=== PATIENT | female | born 1985 | race Hispanic/Latino ===

== ENCOUNTER 2017-02-19 05:36 | Emergency (ER) | payer BC ==
--- NOTE | 2017-02-19 06:11 | ED PDOC ---
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 Pt reports she has daily bleeding for which Dr Watson, ENT, plans to operate after she delivers the baby, and is aware that patient has had daily bleeding for 2 weeks. Patient was last seen 02/13/17 and states that yesterday she began having more frequent and larger amounts of bleeding and when she called the ENT service she was instructed to go to the ED. She denies any medications other than PNV and denies any palpitations, SOB , dizziness. PMH: None OB: G1, currently 38wks and receiving care at [facility] Past Medical History Vital Signs: Last Vital Signs Temp 37.1 C 02/19/17 05:40 Pulse 98 H 02/19/17 05:40 Resp 16 02/19/17 05:40 BP 148/86 02/19/17 05:40 Pulse Ox 100 02/19/17 05:40 - Family History Family History: States: No Known Family Hx - Allergies Allergies/Adverse Reactions: Allergies Allergy/AdvReac Type Severity Reaction Status Date / Time Iodinated Contrast- Oral and Allergy RASH Verified 02/19/17 05:43 IV Dye Review of Systems ENT: Positive for: Nose Discharge (Bleeding) Physical Exam - Reviewed Vital Signs Reviewed: Yes - Physical Exam Appears: Positive for: Well, Non-toxic, No Acute Distress Head Exam: Positive for: ATRAUMATIC, NORMAL INSPECTION Skin: Positive for: Normal Color, Warm Eye Exam: Positive for: EOMI, PERRL ENT: Positive for: Normal ENT Inspection (old blood present in RIGHT nare, but no current bleeding) Neck: Positive for: Normal, Supple Cardiovascular/Chest: Positive for: Regular Rate, Rhythm. Negative for: JVD Respiratory: Positive for: Normal Breath Sounds. Negative for: Rales, Rhonchi Gastrointestinal/Abdominal: Positive for: Normal Exam (Gravid, 38wks GA), Bowel Sounds. Negative for: Tenderness Extremity: Positive for: Pedal Edema (b/l feet), Capillary Refill Neurologic/Psych: Positive for: Alert, Mood/Affect (WNL) - ECG O2 Sat by Pulse Oximetry: 100 Medical Decision Making Medical Decision Making: Patient with intermittent nasal bleeding with planned surgery after delivery of baby. There is not enough bleeding to necessitate packing, however patient is nervous. Otherwise she is stable, airway is protected. - Dr Joe (Dr Watson's group) recommended nasal packing as indicated, Stewart- Synephrine if safe for , and follow up on Monday ([phone]) - Ice and pressure to affected area Disposition - Clinical Impression Clinical Impression: Epistaxis, recurrent - Patient ED Disposition Is Patient to be Admitted: No Discussed With .: Dane Joe Comment: Recommended saline spray, follow up in clinic Monday, return to ED if bleeding resumes, and Neosynephrine if appropriate during . Counseled Patient/Family Regarding: Studies Performed, Need For Followup - Disposition Disposition: Routine/Home Disposition Time: 07:02 Condition: IMPROVED Additional Instructions: - Follow up with Dr Watson Monday - May use OTC Neosynephrine 0.5%, 1 spray in right nare every 4 hours - Continue with saline spray as per ENT, recommend placing in refrigerator - If persistent bleeding returns despite above interventions attempt pressure/ ice cold gauze and return to the ED
[2017-02-19] MEDS ORDERED: Phenylephrine 0.5% Nasal Spray NAS PRN (06:55)
[2017-02-19] MEDS ORDERED: Phenylephrine 0.5% Nasal Spray NAS ONE (06:56)
[2017-02-19 07:55] VITALS: BP 139/87; PULSE 102; RESP 18; TEMP 98; O2SAT 99
== END 2017-02-19 08:33 | disposition home or self-care (01) ==
LOC: H.ER 05:36
DX: R04.0 Epistaxis (principal); Z3A.38 38 weeks gestation of pregnancy